=== PATIENT | female | born 1965 | race Caucasian/White ===

== ENCOUNTER 2024-02-24 00:12 | Day surgery (SDC) | payer OTHER, SELFPAY ==
[2024-02-17 08:46] VITALS: BMI 36.6
--- NOTE | 2024-02-17 09:14 | PC.NURSE ---
Addendum entered by Roxanne Beck RN 02/18/24 12:27: Pt takes Ozempic on Tuesdays - was instructed to skip her dose on 02/22. Original Note: Report to the Outpatient Waiting Room, entrance under the green pavilion located off [facility], at time _11:00AM on date _Thu02/24/24 . Planned Procedure Time: __13:00PM . Time changes happen often and if your time is changed the preop area will call you the afternoon before. - You and your visitor will be asked to self-screen and do not enter if you have any COVID symptoms. - A mask is optional within the hospital at this time. Patients may have clear liquids (water, carbonated beverages, clear teas, apple juice) until 3 hours prior to surgery with a maximum of 20 ounces. - No food from midnight until time of surgery. Take the following medications with a SIP of water the morning of surgery: _venlafaxine, topiramate, levothyroxine,bupoprion, allopurinol DO NOT STOP ANY OF YOUR OTHER PRESCRIPTION MEDICATIONS PRIOR TO SURGERY ?EXCEPT THE FOLLOWING Medications to discontinue per physician ____consult dr. fonseca re: meloxicam d/c Date to take last dose Please no make-up, nail german, hairspray, perfume, deodorant, or body powder the day of surgery. No jewelry (including any body piercings) or valuables the day of surgery, leave them at home. Please take a shower or bath the night before, or the morning of, surgery with an antibacterial soap. Wear comfortable, loose fitting clothing. - Jewelry must be removed prior to entering the operating room. Rings and piercings that are not removed may be cut off. - The hospital will not accept responsibility for valuables. - Please leave all valuables, including medications, at home the day of surgery. If you are going home after surgery, a licensed service car driver must drive you home. - NO public transportation without another adult if you receive anesthesia. - We recommend that an adult stay with you for 24 hours following discharge. - We also recommend that you do not drive, make important decision, drink alcoholic beverages, or take any drugs that were not prescribed by your health care provider for at least 24 hours after your discharge time. Follow any additional instructions given to you from your surgeon. If you or anyone in your household have experienced Covid symptoms in the past week, please notify your surgeon or the nurse liaison at the phone number below for possible testing. Telephone instructions given to __Morganla and asked if any additional questions and then verbalized understanding. Patient advised to call surgeon office or pre surgery nurse liaison [phone] if any additional questions.
[2024-02-24] MEDS: LACTATED RINGERS 1,000 ML 30 ML IV CONT (11:59)
[2024-02-24] MEDS: ACETAMINOPHEN 500 MG TABLET 1000 MG PO (11:59)
[2024-02-24 12:00] VITALS: BP 131/75; PULSE 60; TEMP 36.5; O2SAT 100
--- NOTE | 2024-02-24 12:14 | P.PNAN_ITS ---
Anes - Initial Pre Proc Eval Procedure: Operation Date: 02/24/24 13:00 Proposed Procedures p Hysteroscopy Dilation and Curettage, Possible Polypectomy - Jb Rodriguez MD Date/Time: 02/24/24 12:14 Surgeon: Jb Rodriguez MD Pre Op Diagnosis: Post Menopausal Bleeding Patient Data Age: 58 Gender: F Height: 1.65 m Weight: 98 kg Last Vital Signs Temp 97.7 F 02/24/24 12:00 Pulse 60 02/24/24 12:00 BP 131/75 02/24/24 12:00 Pulse Ox 100 02/24/24 12:00 O2 Del Method Room Air 02/24/24 12:00 Allergies Allergy/AdvReac Type Severity Reaction Status Date / Time grass pollen Allergy Intermediate Sneezing Verified 02/17/24 09:22 mold Allergy Intermediate Sneezing Verified 02/17/24 09:22 Home Medications Medication Instructions Recorded Confirmed Type allopurinol 100 mg tablet 100 mg PO DAILY 02/17/24 02/17/24 History bupropion HCl 150 mg 24 hr tablet, 150 mg PO DAILY 02/17/24 02/17/24 History extended release fluticasone propionate 50 2 spray intranasal DAILY 02/17/24 02/17/24 History mcg/actuation nasal spray,suspension levocetirizine 5 mg tablet 5 mg PO DAILY 02/17/24 02/17/24 History levothyroxine 75 mcg tablet 75 mcg PO DAILY 02/17/24 02/17/24 History meloxicam 15 mg tablet 15 mg PO DAILY 02/17/24 02/17/24 History metformin 500 mg tablet,extended 500 mg PO DAILY 02/17/24 02/17/24 History release 24 hr montelukast 10 mg tablet 10 mg PO DAILY 02/17/24 02/17/24 History pantoprazole 40 mg tablet,delayed 40 mg PO DAILY 02/17/24 02/17/24 History release semaglutide 0.25 mg or 0.5 mg (2 0.25 mg subcut WEEKLY 02/17/24 02/17/24 History mg/3 mL) subcutaneous pen injector (Ozempic) topiramate 100 mg tablet 100 mg PO BID 02/17/24 02/17/24 History venlafaxine 150 mg 150 mg PO DAILY 02/17/24 02/17/24 History capsule,extended release 24 hr zolpidem 10 mg tablet 10 mg PO HS 02/17/24 02/17/24 History Patient hx anesthesia problems: none Family hx anesthesia problems: none Results Review: All pre-operative results and documents have been reviewed as part of the pre- operative evaluation. [facility] Social History Social History Smoking status: Never smoker Alcohol intake: never Substance use: never Living arrangements: with family Spiritual care concerns: No Anes - Eval Final PreProcedure Day of Procedure 02/24/24 12:14 Patient weight: obese Heart: regular rate and rhythm Lungs: clear to auscultation Airway: Mallampati scale class II Neurological: alert and oriented Last oral intake: >/= 8 hours ASA classification: II Emergent: no Anesthetic plan: proceed Anesthesia type and monitoring: general GIVS and standard monitoring Results Review: All pre-operative results and documents have been reviewed as part of the pre- operative evaluation. Ozempic on hold now for 8 days without any early satiety or N/V. Informed Consent: The patient's anesthetic plan and its attendant risks and benefits were discussed with the patient/family/POA. Questions were solicited and answers provided to the satisfaction of the patient/family/POA.
--- NOTE | 2024-02-24 12:30 | PM.IMHP ---
H&P: HPI History of Present Illness Date/Time: 02/24/24 12:30 Chief Complaint: postmenopausal bleeding Narrative: Patient is a 58 year old female who presents for hysteroscopy and D&C indicated for postmenopausal bleeding. She reports one episode of 4-5 days of bleeding, and has continued to have irregular spotting. She denies pelvic pain. Endometrial biopsy in the office was inactive endometrium with no hyperplasia or malignancy. However, pelvic US demonstrated possible polyp in the upper endometrium. We discussed hysteroscopy for complete visualization and removal of any endometrial irregularities to ensure biopsy sample did not miss any pathology. Patient voices understanding. No abdominal pain, nausea, vomiting, fevers, or chills. Review of Systems Review of Systems: All systems reviewed & are unremarkable except as noted in HPI and below PMFSH Social History Social History Smoking status: Never smoker Alcohol intake: never Substance use: never Living arrangements: with family Spiritual care concerns: No Meds Home Medications and Allergies Home Medications Medication Instructions Recorded Confirmed Type allopurinol 100 mg tablet 100 mg PO DAILY 02/17/24 02/17/24 History bupropion HCl 150 mg 24 hr tablet, 150 mg PO DAILY 02/17/24 02/17/24 History extended release fluticasone propionate 50 2 spray intranasal DAILY 02/17/24 02/17/24 History mcg/actuation nasal spray,suspension levocetirizine 5 mg tablet 5 mg PO DAILY 02/17/24 02/17/24 History levothyroxine 75 mcg tablet 75 mcg PO DAILY 02/17/24 02/17/24 History meloxicam 15 mg tablet 15 mg PO DAILY 02/17/24 02/17/24 History metformin 500 mg tablet,extended 500 mg PO DAILY 02/17/24 02/17/24 History release 24 hr montelukast 10 mg tablet 10 mg PO DAILY 02/17/24 02/17/24 History pantoprazole 40 mg tablet,delayed 40 mg PO DAILY 02/17/24 02/17/24 History release semaglutide 0.25 mg or 0.5 mg (2 0.25 mg subcut WEEKLY 02/17/24 02/17/24 History mg/3 mL) subcutaneous pen injector (Ozempic) topiramate 100 mg tablet 100 mg PO BID 02/17/24 02/17/24 History venlafaxine 150 mg 150 mg PO DAILY 02/17/24 02/17/24 History capsule,extended release 24 hr zolpidem 10 mg tablet 10 mg PO HS 02/17/24 02/17/24 History Allergies Allergy/AdvReac Type Severity Reaction Status Date / Time grass pollen Allergy Intermediate Sneezing Verified 02/17/24 09:22 mold Allergy Intermediate Sneezing Verified 02/17/24 09:22 Vital Signs Vital Signs - 24 hr 02/24/24 12:00 Temperature 97.7 F Pulse Rate 60 Blood Pressure 131/75 Pulse Oximetry 100 Oxygen Delivery Room Air Exam Const: General: comfortable and no acute distress HENMT: Mouth: Yes moist mucous membranes Eyes: General: appearance normal, both eyes and all related structures Resp: Effort & Inspection: normal respiratory effort Cardio: Rate: regular rate Skin: General skin exam: normal color Extrem: General: normal to inspection Psych: Mental Status: mental status grossly normal Assessment and Plan Assessment and plan (1) Postmenopausal bleeding: Code(s): N95.0 - Postmenopausal bleeding Status: Acute Assessment and Plan: - 1 episode lasting 4-5 days - Pelvic US demonstrates vascularity in the upper endometrium concerning for a polyp - discussed hysteroscopy, D&C with possible polypectomy for complete visualization and endometrial sampling, including risks and benefits - patient desires to proceed with procedure as above
--- NOTE | 2024-02-24 12:37 | WPDHPUPDATE1 ---
History and Physical Update Update Date/Time: 02/24/24 12:37 History and Physical has been reviewed, including an updated exam of the patient. There are NO changes in the patient's condition. Risks, benefits, and alternatives have been discussed and questions answered. Patient agrees to proceed with procedure.
--- NOTE | 2024-02-24 12:44 | W.PM.PROC2 ---
Procedure Note - Detailed Date of Procedure 02/24/24 Pre-op Diagnosis Post Menopausal Bleeding Post-op Diagnosis Same Procedure Performed hysteroscopy, dilation and curettage, polypectomy Surgeon Jb Rodriguez MD Anesthesia MAC Findings endometrial polyp attached to the fundus of the endometrial cavity; otherwise normal appearing cavity; both tubal ostia visualized Description of Procedure The patient was taken to the operating room with IVFs running. She was placed into the dorsal supine position where she received MAC without any difficulty. The patient was placed in the dorsal lithotomy position using Frankie stirrups. EUA revealed findings as above. She was then prepped and draped in a normal sterile fashion. A time-out procedure was performed and all members of the OR team agreed on the patient and plan. A bivalve speculum was then inserted into the patient's vagina. The anterior lip of the cervix was grasped with a single tooth tenaculum. The uterus was gently sounded to 8 cm. The hysteroscope was then inserted into the uterine cavity using saline as the distension media and revealed the above findings. Both ostia were identified and pictures were taken. At this point, the morcellator was then introduced into the hysteroscope and calibrated. The tip of the morcellator was then applied to the polyp and activated. The polyp was removed to its base. A sharp curettage was then performed. At the end of the procedure, the uterine cavity was clear of all pathology. The fluid deficit was 220 cc. The specimen was sent for pathology. The hysteroscope and tenaculum were removed. The speculum was then reintroduced into the vagina and the anterior lip of the cervix was hemostatic. The speculum was then removed. The patient tolerated the procedure well. Sponge, lap, and instrument counts were correct X2. The patient was taken out of the dorsal lithotomy position and was awakened from anesthesia. She was taken to the recovery room in stable condition. Estimated Blood Loss 10 Pathology Yes Complications No immediate complications Condition Stable Disposition Same day
[2024-02-24] MEDS: LIDOCAINE/EPINEPHRINE 0.5%/1:200,000 50 ML VIAL 10 ML INFILTRATE (13:33)
[2024-02-24 13:50] VITALS: BP 142/85; PULSE 66; RESP 14; O2SAT 100
[2024-02-24 14:20] VITALS: BP 162/80; PULSE 64; RESP 16
[2024-02-24 14:50] VITALS: BP 152/84; PULSE 63; RESP 16
== END 2024-02-24 15:02 | disposition home or self-care (01) ==
PROVIDERS: PCP Family Medicine; Visit Provider Obstetrics & Gynecology
PROC: 0U5B8ZZ Destruction of Endometrium, Via Natural or Artificial Opening Endoscopic (ICD-10-PCS; CPT 58563; principal; 2024-02-24 13:00)
DX: N84.0 Polyp of corpus uteri (principal); N95.0 Postmenopausal bleeding; Z79.84 Long term (current) use of oral hypoglycemic drugs; Z79.85 Long-term (current) use of injectable non-insulin antidiabetic drugs; E66.9 Obesity, unspecified; Z68.36 Body mass index [BMI] 36.0-36.9, adult
CPT/HCPCS: 58558; 88305; A9270; J1100; J2250; J2405; J2704; J3010; J7120